=== PATIENT | male | born 1995 | race American Indian/Alaskan Native ===

== ENCOUNTER 2018-03-02 18:35 | Emergency (ER) | payer SELFPAY ==
[2018-03-02 19:43] LABS: Basophils # (Auto) 0.1 K/mm3 (0.0-0.1); Basophils % (Auto) 1.4 % (0.0-1.8); Eosinophils # (Auto) 0.2 K/mm3 (0.0-0.4); Eosinophils % (Auto) 2.1 % (0.0-4.3); Hematocrit 44.2 % (35.5-45.6); Hemoglobin 14.5 gm/dl (11.8-15.2); Lymphocytes # (Auto) 3.4 K/mm3 (1.2-5.4); Lymphocytes % (Auto) 32.3 % (13.4-35.0); Mean Corpuscular HGB Conc 33 % (32-34); Mean Corpuscular Hemoglobin 28 pg (28-32); Mean Corpuscular Volume 84 fl (84-94); Monocytes # (Auto) 0.7 K/mm3 (0.0-0.8); Monocytes % (Auto) 6.3 % (0.0-7.3); Platelet Count 312 K/mm3 (140-440); Red Blood Count 5.28 M/mm3 (3.65-5.03); Red Cell Distribution Width 13.7 % (13.2-15.2)
[2018-03-02 19:58] LABS: Albumin 4.4 g/dL (3.9-5); BUN/Creatinine Ratio 13; Blood Urea Nitrogen 14 mg/dL (9-20); Calcium 9.4 mg/dL (8.4-10.2); Hemolysis Index 14
[2018-03-02 20:00] LABS: Alanine Aminotransferase < 5 units/L (7-56)
--- NOTE | 2018-03-02 20:33 | Ultrasound Report ---
FINAL REPORT EXAM: US TESTICULAR DOPPLER COMP HISTORY: right testicular pain and swelling TECHNIQUE: Directed sonography of the scrotum. PRIORS: None. FINDINGS: Right testicle measures 4.2 x 2.2 x 2.6 cm. Left testicle measures 4.4 x 1.4 x 2.3 cm. Normal homogeneous echogenicity. No intratesticular masses. Blood flow present bilaterally. Right epididymis diffusely enlarged and hyperemic. Left epididymis grossly unremarkable. Small-moderate right hydrocele may be reactive. No other abnormal fluid collections. IMPRESSION: 1. Findings which may represent nonspecific postinflammatory change involving right epididymis or epididymitis. Correlate clinically. 2. No intratesticular masses or evidence of torsion.
[2018-03-02] MEDS ORDERED: ZITHROMAX PO ONE (20:53)
[2018-03-02] MEDS ORDERED: XYLOCAINE 1% MPF 5 mL INFILTRATI ONE (20:53)
[2018-03-02] MEDS ORDERED: ROCEPHIN IM ONE (20:53)
[2018-03-02] MEDS ORDERED: MOTRIN PO ONE (20:55)
[2018-03-02 20:56] LABS: Bilirubin,Urine NEG (Negative); Blood,Urine NEG (Negative); Color,Urine Yellow (Yellow); Mucus,Urine FEW /HPF; Protein,Urine <15 mg/dL mg/dL (Negative)
--- NOTE | 2018-03-02 21:36 | Emergency Department Report ---
ED Male HPI - General Chief complaint: Abdominal Pain Stated complaint: LOWER STOMACH PAIN Time Seen by Provider: 03/02/18 20:33 Source: patient Mode of arrival: Ambulatory Limitations: No Limitations - History of Present Illness Initial comments: 22-year-old male with no significant past medical or surgical history presents to the hospital complaining of right testicular pain and swelling 2 weeks that has gradually worsened. He also complains of intermittent lower abdominal pain. Pain is rated 10/10 in intensity, constant, worse with palpation and movement. No alleviating factors reported. Patient denies fever, nausea, vomiting, diarrhea, dysuria, penile discharge, or genital trauma. Patient last had sex one month ago and does not use condoms only engages in receptive anal intercourse and states that he does not insert his penis into any genital or rectal orifices during sex. - Related Data Previous Rx's Medication Instructions Recorded Last Taken Type Doxycycline [Vibramycin CAP] 100 mg PO Q12HR #30 capsule 03/02/18 Unknown Rx Ibuprofen [Motrin] 800 mg PO Q8HR PRN #30 tablet 03/02/18 Unknown Rx levoFLOXacin [Levaquin TAB] 500 mg PO QDAY #10 tablet 03/02/18 Unknown Rx traMADol [Ultram 50 MG tab] 50 mg PO Q6HR PRN #20 tablet 03/02/18 Unknown Rx Allergies Allergy/AdvReac Type Severity Reaction Status Date / Time No Known Allergies Allergy Verified 03/02/18 18:59 ED Review of Systems ROS: Stated complaint: LOWER STOMACH PAIN Other details as noted in HPI Comment: All other systems reviewed and negative ED Past Medical Hx - Past Medical History Previous Medical History?: No - Surgical History Past Surgical History?: No - Social History Smoking Status: Current Every Day Smoker Substance Use Type: Alcohol, Marijuana - Medications Home Medications: Home Medications Medication Instructions Recorded Confirmed Last Taken Type Doxycycline [Vibramycin CAP] 100 mg PO Q12HR #30 capsule 03/02/18 Unknown Rx Ibuprofen [Motrin] 800 mg PO Q8HR PRN #30 tablet 03/02/18 Unknown Rx levoFLOXacin [Levaquin TAB] 500 mg PO QDAY #10 tablet 03/02/18 Unknown Rx traMADol [Ultram 50 MG tab] 50 mg PO Q6HR PRN #20 tablet 03/02/18 Unknown Rx ED Physical Exam - General Limitations: No Limitations - Other Other exam information: General: No limitations, patient is alert in no acute distress Head exam: Atraumatic, normocephalic Eyes exam: Normal appearance ENT: Moist mucous membrane, normal oropharynx Neck exam: Normal inspection, full range of motion Respiratory exam: Clear to auscultation bilateral, no wheezes, rales, crackles Cardiovascular: Normal rate and rhythm, normal heart sounds Abdomen: Soft, nondistended, and nontender, with normal bowel sounds, no rebound, or guarding : Circumcised, no penile discharge or lesions. Right testicular swelling with epididymal tenderness on exam Extremity: Full range of motion normal inspection no deformity Back: Normal Inspection, full range of motion, no tenderness Neurologic: Alert, oriented x3, cranial nerves intact, no motor or sensory deficit Psychiatric: normal affect, normal mood Skin: Warm, dry, intact ED Course Vital Signs 03/02/18 18:50 Temperature 98.6 F Pulse Rate 75 Respiratory 18 Rate Blood Pressure 142/93 O2 Sat by Pulse 98 Oximetry ED Medical Decision Making - Lab Data Result diagrams: 03/02/18 19:24 03/02/18 19:24 Lab Results 03/02/18 03/02/18 03/02/18 Range/Units 19:24 19:24 20:43 WBC 10.5 (4.5-11.0) K/mm3 RBC 5.28 H (3.65-5.03) M/mm3 Hgb 14.5 (11.8-15.2) gm/dl Hct 44.2 (35.5-45.6) % MCV 84 (84-94) fl MCH 28 (28-32) pg MCHC 33 (32-34) % RDW 13.7 (13.2-15.2) % Plt Count 312 (140-440) K/mm3 Lymph % (Auto) 32.3 (13.4-35.0) % [place] % (Auto) 6.3 (0.0-7.3) % Eos % (Auto) 2.1 (0.0-4.3) % Baso % (Auto) 1.4 (0.0-1.8) % Lymph # 3.4 (1.2-5.4) K/mm3 [place] # 0.7 (0.0-0.8) K/mm3 Eos # 0.2 (0.0-0.4) K/mm3 Baso # 0.1 (0.0-0.1) K/mm3 Seg Neutrophils % 57.9 (40.0-70.0) % Seg Neutrophils # 6.1 (1.8-7.7) K/mm3 Sodium 140 (137-145) mmol/L Potassium 3.8 (3.6-5.0) mmol/L Chloride 100.9 (98-107) mmol/L Carbon Dioxide 26 (22-30) mmol/L Anion Gap 17 mmol/L BUN 14 (9-20) mg/dL Creatinine 1.1 (0.8-1.5) mg/dL Estimated GFR > 60 ml/min BUN/Creatinine Ratio 13 % Glucose 102 H (75-100) mg/dL Calcium 9.4 (8.4-10.2) mg/dL Total Bilirubin 0.40 (0.1-1.2) mg/dL AST 17 (5-40) units/L ALT < 5 L (7-56) units/L Alkaline Phosphatase 66 (35-129) units/L Total Protein 7.7 (6.3-8.2) g/dL Albumin 4.4 (3.9-5) g/dL Albumin/Globulin Ratio 1.3 % Urine Color Yellow (Yellow) Urine Turbidity Clear (Clear) Urine pH 6.0 (5.0-7.0) Ur Specific [place] 1.016 (1.003-1.030) Urine Protein <15 mg/dl (Negative) mg/dL Urine Glucose (UA) Neg (Negative) mg/dL Urine Ketones Neg (Negative) mg/dL Urine Blood Neg (Negative) Urine Nitrite Neg (Negative) Urine Bilirubin Neg (Negative) Urine Urobilinogen 2.0 (<2.0) mg/dL Ur Leukocyte Esterase Neg (Negative) Urine WBC (Auto) 2.0 (0.0-6.0) /HPF Urine RBC (Auto) 1.0 (0.0-6.0) /HPF Urine Mucus Few /HPF - Radiology Data Radiology results: report reviewed FINAL REPORT EXAM: US TESTICULAR DOPPLER COMP HISTORY: right testicular pain and swelling TECHNIQUE: Directed sonography of the scrotum. PRIORS: None. FINDINGS: Right testicle measures 4.2 x 2.2 x 2.6 cm. Left testicle measures 4.4 x 1.4 x 2.3 cm. Normal homogeneous echogenicity. No intratesticular masses. Blood flow present bilaterally. Right epididymis diffusely enlarged and hyperemic. Left epididymis grossly unremarkable. Small-moderate right hydrocele may be reactive. No other abnormal fluid collections. IMPRESSION: 1. Findings which may represent nonspecific postinflammatory change involving right epididymis or epididymitis. Correlate clinically. 2. No intratesticular masses or evidence of torsion. - Medical Decision Making Right testicular pain Ultrasound suggestive of right epididymitis UA negative, urine culture pending GC and chlamydia pending Patient does not engage and insertive anal intercourse Patient empirically treated with Rocephin and azithromycin given his age Gay and Motrin for pain Antibiotics will be continued upon discharge and urology follow-up encourage - Differential Diagnosis orchitis, torsion, UTI, urethritis, epididymitis Critical Care Time: No Critical care attestation.: If time is entered above; I have spent that time in minutes in the direct care of this critically ill patient, excluding procedure time. ED Disposition Clinical Impression: Right epididymitis Disposition: TO HOME OR SELFCARE Is pt being admited?: No Condition: Stable Instructions: Epididymitis (ED) Additional Instructions: Take the medication as prescribed. Follow up with the doctor provided. Return if symptoms worsen as indicated by your discharge instructions Prescriptions: Doxycycline [Vibramycin CAP] 100 mg PO Q12HR #30 capsule Ibuprofen [Motrin] 800 mg PO Q8HR PRN #30 tablet PRN Reason: Pain, Moderate (4-6) levoFLOXacin [Levaquin TAB] 500 mg PO QDAY #10 tablet traMADol [Ultram 50 MG tab] 50 mg PO Q6HR PRN #20 tablet PRN Reason: Pain Referrals: CELIA CHONG MD [Staff Physician] - 3-5 Days (Urology) [facility] [Provider Group] - 3-5 Days (Primary care clinic) Forms: STI Treatment and Prevention Time of Disposition: 21:41
[2018-03-02 22:14] VITALS: BP 140/97
== END 2018-03-02 22:17 | disposition home or self-care (01) ==
LOC: EDSEX → ED 18:35
DX: N45.1 Epididymitis (principal); F17.200 Nicotine dependence, unspecified, uncomplicated; F12.10 Cannabis abuse, uncomplicated
CPT/HCPCS: 36415; 80053; 81001; 85025; 87086; 87591; 93975; 96372; 99284; J0696

== ENCOUNTER 2018-07-14 12:47 | Emergency (ER) | payer BC ==
[2018-07-14 13:03] VITALS: BP 142/100
[2018-07-14] MEDS ORDERED: ZITHROMAX PO ONE (13:23)
[2018-07-14] MEDS ORDERED: XYLOCAINE 1% MPF 5 mL INFILTRATI ONE (13:24)
[2018-07-14] MEDS ORDERED: ROCEPHIN IM ONE (13:24)
--- NOTE | 2018-07-14 13:25 | Emergency Department Report ---
Addendum entered and electronically signed by MARIAH ROBERTSON NP 07/14/18 13:57: correction of PMH- remove urinary retention - not applicable to this patient Original Note: ED Dysuria HPI - HPI Chief Complaint: Urogenital-Male Stated Complaint: SORE THROAT/INFECTION Time Seen by Provider: 07/14/18 13:23 Duration: 4 Days Severity: Mild Symptoms: Dysuria: Yes, Frequency: No, Suprapubic Pain: No, Flank Pain: No, Fever: No, Hematuria: No, Abdominal Pain: No, Previous UTI's: No Other History: 23 yo homosexual male with exposure to chlamydia ED Review of Systems ROS: Stated complaint: SORE THROAT/INFECTION Other details as noted in HPI Comment: All other systems reviewed and negative Constitutional: denies: chills Eyes: denies: as per HPI ENT: denies: throat pain Respiratory: denies: cough Cardiovascular: denies: dyspnea on exertion Gastrointestinal: denies: abdominal pain Genitourinary: as per HPI, dysuria, frequency ED Past Medical Hx - Past Medical History Previous Medical History?: Yes Additional medical history: urinary retention in 2016- seen here- sent to [facility] [place]. pt thinks it is a stricture. he was treated and has had no problems to date -07/14/18 - Surgical History Past Surgical History?: No - Social History Smoking Status: Never Smoker Substance Use Type: Alcohol - Medications Home Medications: Home Medications Medication Instructions Recorded Confirmed Last Taken Type Doxycycline [Vibramycin CAP] 100 mg PO Q12HR #30 capsule 03/02/18 Unknown Rx Ibuprofen [Motrin] 800 mg PO Q8HR PRN #30 tablet 03/02/18 Unknown Rx levoFLOXacin [Levaquin TAB] 500 mg PO QDAY #10 tablet 03/02/18 Unknown Rx traMADol [Ultram 50 MG tab] 50 mg PO Q6HR PRN #20 tablet 03/02/18 Unknown Rx Dysuria Exam - Exam General: Vital signs noted. No distress. Alert and acting appropriately. a/o nad s1s2 lungs cta abd snt Exam: Yes Moist Mucous Membranes, No CVA Tenderness, No Abdominal Tenderness, No Rigidity or Guarding ED Course Vital Signs 07/14/18 13:00 Temperature 99 F Pulse Rate 87 Respiratory 18 Rate Blood Pressure 142/100 O2 Sat by Pulse 99 Oximetry - Reevaluation(s) Reevaluation #1: 07/14/18 13:53 discussed elevated blood pressure with pt. he states he is just upset about the current situation ED Medical Decision Making - Medical Decision Making tingling with urination and sore throat; pos discharge exposure to chlamydia ua/gc sent treated with azithrom and rocephin dc home - Differential Diagnosis sti Critical care attestation.: If time is entered above; I have spent that time in minutes in the direct care of this critically ill patient, excluding procedure time. ED Disposition Clinical Impression: STD (sexually transmitted disease), Elevated blood pressure reading Disposition: DC-01 TO HOME OR SELFCARE Is pt being admited?: No Does the pt Need Aspirin: No Condition: Stable Instructions: Sexually Transmitted Diseases (ED), Safe Sex (ED) Additional Instructions: safe sex monitor blood pressure Referrals: TANNA BERMAN MD [Staff Physician] - 3-5 Days Time of Disposition: 13:25
[2018-07-14 13:54] LABS: Bilirubin,Urine NEG (Negative); Blood,Urine NEG (Negative); Color,Urine Yellow (Yellow); Mucus,Urine FEW /HPF; Protein,Urine <15 mg/dL mg/dL (Negative); Urobilinogen,Urine < 2.0 mg/dL (<2.0)
== END 2018-07-14 13:59 | disposition home or self-care (01) ==
LOC: ED 12:47
DX: A64 Unspecified sexually transmitted disease (principal); I10 Essential (primary) hypertension
CPT/HCPCS: 81001; 87591; 96372; 99283; J0696

== ENCOUNTER 2018-11-11 17:19 | Emergency (ER) | payer SELFPAY ==
--- NOTE | 2018-11-11 18:10 | Emergency Department Report ---
Chief Complaint: Fever Stated Complaint: CHILLS/LOSS OF APPETITE Time Seen by Provider: 11/11/18 18:06 - HPI History of Present Illness: This is a 23 y.o. male that presents with discharge and dysuria to rectum x 1 week. Reports chills and fever No medication No PMH - Exam Vital Signs: Vital Signs 11/11/18 18:02 Temperature 100.9 F H Pulse Rate 92 H Respiratory 18 Rate Blood Pressure 137/90 O2 Sat by Pulse 99 Oximetry MSE screening note: Focused history and physical exam performed. Due to findings the following was ordered: ED Disposition for MSE Condition: Stable
[2018-11-11 18:31] LABS: Basophils % (Auto) 0.5 % (0.0-1.8); Eosinophils % (Auto) 0.1 % (0.0-4.3); Hematocrit 45.6 % (35.5-45.6); Hemoglobin 15.2 gm/dl (11.8-15.2); Lymphocytes # (Auto) 1.1 K/mm3 (1.2-5.4); Lymphocytes % (Auto) 21.2 % (13.4-35.0); Mean Corpuscular HGB Conc 33 % (32-34); Mean Corpuscular Volume 84 fl (84-94); Monocytes # (Auto) 0.4 K/mm3 (0.0-0.8); Monocytes % (Auto) 8.9 % (0.0-7.3); Platelet Count 122 K/mm3 (140-440); Red Blood Count 5.42 M/mm3 (3.65-5.03)
[2018-11-11 18:46] LABS: BUN/Creatinine Ratio 7; Blood Urea Nitrogen 10 mg/dL (9-20); Calcium 9.1 mg/dL (8.4-10.2); Hemolysis Index 14
[2018-11-11 18:56] LABS: Bacteria,Urine 1+ /HPF (Negative); Bilirubin,Urine NEG (Negative); Blood,Urine SM (Negative); Color,Urine Yellow (Yellow); Mucus,Urine FEW /HPF; Protein,Urine <15 mg/dL mg/dL (Negative); Urobilinogen,Urine < 2.0 mg/dL (<2.0)
[2018-11-11] MEDS ORDERED: IBUPROFEN PO ONE (20:55)
--- NOTE | 2018-11-11 20:55 | Emergency Department Report ---
ED General Adult HPI - General Chief complaint: Fever Stated complaint: CHILLS/LOSS OF APPETITE Time Seen by Provider: 11/11/18 18:06 Source: patient Mode of arrival: Ambulatory Limitations: No Limitations - History of Present Illness Initial comments: Pt is a 23 yo male who presents to the ED with c/o white rectal discharge that began a week ago. He states he has associated chills and generalized body aches. He denies any dysuria, penile discharge, penile pain, testicular edema, testicular pain. denies cough, CP, SOB, or N/V/D. He states he has had this one time in the past and states he had a small "anal tear" and was seen by GI. he denies any PMHx. denies allergies to meds. - Related Data Previous Rx's Medication Instructions Recorded Last Taken Type DOXYCYCLINE Hyclate [Vibramycin 100 mg PO Q12HR #30 capsule 03/02/18 Unknown Rx CAP] Ibuprofen [Motrin] 800 mg PO Q8HR PRN #30 tablet 03/02/18 Unknown Rx levoFLOXacin [Levaquin TAB] 500 mg PO QDAY #10 tablet 03/02/18 Unknown Rx traMADol [Ultram 50 MG tab] 50 mg PO Q6HR PRN #20 tablet 03/02/18 Unknown Rx Doxycycline Hyclate [Doxycycline 100 mg PO BID 7 Days #14 tab 11/11/18 Unknown Rx Hyclate TAB] Allergies Allergy/AdvReac Type Severity Reaction Status Date / Time No Known Allergies Allergy Verified 07/14/18 13:00 ED Review of Systems ROS: Stated complaint: CHILLS/LOSS OF APPETITE Other details as noted in HPI Comment: All other systems reviewed and negative ED Past Medical Hx - Past Medical History Previous Medical History?: No Additional medical history: urinary retention in 2016- seen here- sent to [facility] [place]. pt thinks it is a stricture. he was treated and has had no problems to date -07/14/18 - Surgical History Past Surgical History?: No - Social History Smoking Status: Current Some Day Smoker Substance Use Type: Alcohol - Medications Home Medications: Home Medications Medication Instructions Recorded Confirmed Last Taken Type DOXYCYCLINE Hyclate [Vibramycin 100 mg PO Q12HR #30 capsule 03/02/18 Unknown Rx CAP] Ibuprofen [Motrin] 800 mg PO Q8HR PRN #30 tablet 03/02/18 Unknown Rx levoFLOXacin [Levaquin TAB] 500 mg PO QDAY #10 tablet 03/02/18 Unknown Rx traMADol [Ultram 50 MG tab] 50 mg PO Q6HR PRN #20 tablet 03/02/18 Unknown Rx Doxycycline Hyclate [Doxycycline 100 mg PO BID 7 Days #14 tab 11/11/18 Unknown Rx Hyclate TAB] ED Physical Exam - General Limitations: No Limitations General appearance: alert, in no apparent distress - Head Head exam: Present: atraumatic, normocephalic - Eye Eye exam: Present: normal appearance - Respiratory Respiratory exam: Present: normal lung sounds bilaterally. Absent: respiratory distress, wheezes, rales, rhonchi, stridor, chest wall tenderness, accessory muscle use, decreased breath sounds, prolonged expiratory - Cardiovascular Cardiovascular Exam: Present: regular rate, normal rhythm, normal heart sounds. Absent: systolic murmur, diastolic murmur, rubs, gallop - GI/Abdominal GI/Abdominal exam: Present: soft, normal bowel sounds. 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, no hemorrhoids visualized or palpated, no visualized discharge, no obvious area of induration or fluctuance, no erythema of the rectal area, perineum or scrotum) - Neurological Exam Neurological exam: Present: alert, oriented X3 - Psychiatric Psychiatric exam: Present: normal affect, normal mood - Skin Skin exam: Present: warm, dry, intact ED Course Vital Signs 11/11/18 11/11/18 11/11/18 18:02 21:03 22:03 Temperature 100.9 F H Pulse Rate 92 H Respiratory 18 16 16 Rate Blood Pressure 137/90 Blood Pressure [Left] O2 Sat by Pulse 99 Oximetry 11/11/18 23:32 Temperature 99 F Pulse Rate 72 Respiratory 18 Rate Blood Pressure Blood Pressure 117/74 [Left] O2 Sat by Pulse 97 Oximetry ED Medical Decision Making - Lab Data Result diagrams: 11/11/18 18:21 11/11/18 18:21 Lab Results 11/11/18 11/11/18 11/11/18 Range/Units 18:08 18:21 18:21 WBC 5.0 (4.5-11.0) K/mm3 RBC 5.42 H (3.65-5.03) M/mm3 Hgb 15.2 (11.8-15.2) gm/dl Hct 45.6 (35.5-45.6) % MCV 84 (84-94) fl MCH 28 (28-32) pg MCHC 33 (32-34) % RDW 14.0 (13.2-15.2) % Plt Count 122 L (140-440) K/mm3 Lymph % (Auto) 21.2 (13.4-35.0) % [place] % (Auto) 8.9 H (0.0-7.3) % Eos % (Auto) 0.1 (0.0-4.3) % Baso % (Auto) 0.5 (0.0-1.8) % Lymph # 1.1 L (1.2-5.4) K/mm3 [place] # 0.4 (0.0-0.8) K/mm3 Eos # 0.0 (0.0-0.4) K/mm3 Baso # 0.0 (0.0-0.1) K/mm3 Seg Neutrophils % 69.3 (40.0-70.0) % Seg Neutrophils # 3.5 (1.8-7.7) K/mm3 Sodium 135 L (137-145) mmol/L Potassium 3.6 (3.6-5.0) mmol/L Chloride 101.1 (98-107) mmol/L Carbon Dioxide 25 (22-30) mmol/L Anion Gap 13 mmol/L BUN 10 (9-20) mg/dL Creatinine 1.5 (0.8-1.5) mg/dL Estimated GFR > 60 ml/min BUN/Creatinine Ratio 7 % Glucose 99 (75-100) mg/dL Calcium 9.1 (8.4-10.2) mg/dL Urine Color Yellow (Yellow) Urine Turbidity Clear (Clear) Urine pH 5.0 (5.0-7.0) Ur Specific [place] 1.017 (1.003-1.030) Urine Protein <15 mg/dl (Negative) mg/dL Urine Glucose (UA) Neg (Negative) mg/dL Urine Ketones Tr (Negative) mg/dL Urine Blood Sm (Negative) Urine Nitrite Neg (Negative) Urine Bilirubin Neg (Negative) Urine Urobilinogen < 2.0 (<2.0) mg/dL Ur Leukocyte Esterase Neg (Negative) Urine WBC (Auto) 4.0 (0.0-6.0) /HPF Urine RBC (Auto) 2.0 (0.0-6.0) /HPF U Epithel Cells (Auto) < 1.0 (0-13.0) /HPF Urine Bacteria (Auto) 1+ (Negative) /HPF Urine Mucus Few /HPF HIV 1&2 Antibody Rapid (Non React) HIV P24 Antigen (Non React) 11/11/18 Range/Units 21:18 WBC (4.5-11.0) K/mm3 RBC (3.65-5.03) M/mm3 Hgb (11.8-15.2) gm/dl Hct (35.5-45.6) % MCV (84-94) fl MCH (28-32) pg MCHC (32-34) % RDW (13.2-15.2) % Plt Count (140-440) K/mm3 Lymph % (Auto) (13.4-35.0) % [place] % (Auto) (0.0-7.3) % Eos % (Auto) (0.0-4.3) % Baso % (Auto) (0.0-1.8) % Lymph # (1.2-5.4) K/mm3 [place] # (0.0-0.8) K/mm3 Eos # (0.0-0.4) K/mm3 Baso # (0.0-0.1) K/mm3 Seg Neutrophils % (40.0-70.0) % Seg Neutrophils # (1.8-7.7) K/mm3 Sodium (137-145) mmol/L Potassium (3.6-5.0) mmol/L Chloride (98-107) mmol/L Carbon Dioxide (22-30) mmol/L Anion Gap mmol/L BUN (9-20) mg/dL Creatinine (0.8-1.5) mg/dL Estimated GFR ml/min BUN/Creatinine Ratio % Glucose (75-100) mg/dL Calcium (8.4-10.2) mg/dL Urine Color (Yellow) Urine Turbidity (Clear) Urine pH (5.0-7.0) Ur Specific [place] (1.003-1.030) Urine Protein (Negative) mg/dL Urine Glucose (UA) (Negative) mg/dL Urine Ketones (Negative) mg/dL Urine Blood (Negative) Urine Nitrite (Negative) Urine Bilirubin (Negative) Urine Urobilinogen (<2.0) mg/dL Ur Leukocyte Esterase (Negative) Urine WBC (Auto) (0.0-6.0) /HPF Urine RBC (Auto) (0.0-6.0) /HPF U Epithel Cells (Auto) (0-13.0) /HPF Urine Bacteria (Auto) (Negative) /HPF Urine Mucus /HPF HIV 1&2 Antibody Rapid Non react (Non React) HIV P24 Antigen Non react (Non React) - Medical Decision Making Pt is a 23 yo male who presents to the ED with c/o white rectal discharge that began a week ago. He states he has associated chills and generalized body aches. He denies any dysuria, penile discharge, penile pain, testicular edema, testicular pain. denies cough, CP, SOB, or N/V/D. He states he has had this one time in the past and states he had a small "anal tear" and was seen by GI. he denies any PMHx. denies allergies to meds. on examination no signs of abscess or cellulitis, no abd tenderness, pt given ceftriaxone and azithromycin while in t he ED and also ibuprofen for a low grade temperature. pt had one episode of emesis after medications and stated he did not eat anything today. pt given zofran and had no further episodes of emesis and tolerated PO intake while in the ED. pt given prescription for doxcycline. advised to take as prescribed. will have pt follow back up with his GI doctor in the next 2-3 days. follow up with PCP in the next 2-3 days. return to the ED for any new or worsening symptoms. rapid HIV test sent and was non reactive, advised to have it repeated in 3-6 months. discussed if concerned for any other STDs to be seen at PCP or health department. discussed to abstain from intercourse for 10 days. have partner tested and treated. Critical care attestation.: If time is entered above; I have spent that time in minutes in the direct care of this critically ill patient, excluding procedure time. ED Disposition Clinical Impression: Rectal discharge Disposition: TO HOME OR SELFCARE Is pt being admited?: No Does the pt Need Aspirin: No Condition: Stable Additional Instructions: Please take all medication as prescribed. Follow up with a GI doctor in the next 2-3 days. follow up with a primary care doctor in the next 2-3 days. will need to have further STD testing through health department or primary care office. return to the emergency room for any new or worsening symptoms. Prescriptions: Doxycycline Hyclate [Doxycycline Hyclate TAB] 100 mg PO BID 7 Days #14 tab Referrals: PRIMARY CAREMD [Primary Care Provider] - 2-3 Days [facility] [Provider Group] - 2-3 Days Time of Disposition: 22:55 Print Language: SINHALA
[2018-11-11] MEDS ORDERED: ZITHROMAX PO ONE (21:18)
[2018-11-11] MEDS ORDERED: XYLOCAINE 1% MPF 5 mL INFILTRATI ONE (21:18)
[2018-11-11] MEDS ORDERED: ROCEPHIN IM ONE (21:18)
[2018-11-11] MEDS ORDERED: ZOFRAN ODT PO ONE (22:27)
[2018-11-11 23:32] VITALS: BP 117/74
== END 2018-11-11 23:38 | disposition home or self-care (01) ==
LOC: ED 17:19
DX: K62.89 Other specified diseases of anus and rectum (principal); F17.200 Nicotine dependence, unspecified, uncomplicated
CPT/HCPCS: 36415; 80048; 81001; 85025; 87806; 96372; 99283; J0696; Q0162

== ENCOUNTER 2018-11-14 16:22 | Emergency (ER) | payer BC ==
[2018-11-14 16:29] VITALS: BP 121/75
--- NOTE | 2018-11-14 16:29 | Emergency Department Report ---
Blank Doc - Documentation Documentation: This is a 23-year-old male that presents with URI symptoms. Patient stated was here on the of this month with normal labs. This initial assessment/diagnostic orders/clinical plan/treatment(s) is/are subject to change based on patient's health status, clinical progression and re- assessment by fellow clinical providers in the ED. Further treatment and workup at subsequent clinical providers discretion. Patient/guardians urged not to elope from the ED as their condition may be serious if not clinically assessed and managed. Initial orders include: 1- Patient sent to [facility] for further evaluation and treatment 2- Xray
--- NOTE | 2018-11-14 17:30 | XRay Report ---
PROCEDURE: XR CHEST ROUTINE 2V TECHNIQUE: PA and lateral chest radiographs were obtained. HISTORY: cough COMPARISONS: None. FINDINGS: Heart: Normal. Mediastinum/Vessels: Normal. Lungs/Pleural space: Normal. Bony thorax: No acute osseous abnormality. IMPRESSION: Normal examination. This document is electronically signed by Ruben Ferro MD., Nov 14 2018 05:28:25 PM ET
[2018-11-14 19:46] LABS: Basophils % (Auto) 0.4 % (0.0-1.8); Hematocrit 43.1 % (35.5-45.6); Hemoglobin 14.4 gm/dl (11.8-15.2); Lymphocytes # (Auto) 0.7 K/mm3 (1.2-5.4); Lymphocytes % (Auto) 27.9 % (13.4-35.0); Mean Corpuscular HGB Conc 33 % (32-34); Mean Corpuscular Volume 83 fl (84-94); Monocytes # (Auto) 0.2 K/mm3 (0.0-0.8); Monocytes % (Auto) 5.8 % (0.0-7.3); Red Cell Distribution Width 13.8 % (13.2-15.2)
[2018-11-14 19:47] LABS: Platelet Count 86 K/mm3 (140-440)
[2018-11-14 20:00] LABS: Bacteria,Urine 1+ /HPF (Negative); Bilirubin,Urine NEG (Negative); Blood,Urine SM (Negative); Color,Urine Yellow (Yellow); Mucus,Urine FEW /HPF; Urobilinogen,Urine < 2.0 mg/dL (<2.0)
[2018-11-14 20:18] LABS: Alanine Aminotransferase 14 units/L (7-56); Albumin 3.8 g/dL (3.9-5); BUN/Creatinine Ratio 9; Blood Urea Nitrogen 13 mg/dL (9-20); Calcium 8.9 mg/dL (8.4-10.2); Hemolysis Index 11
--- NOTE | 2018-11-14 22:24 | Emergency Department Report ---
ED General Adult HPI - General Chief complaint: Upper Respiratory Infection Stated complaint: COLD SX Time Seen by Provider: 11/14/18 16:28 Source: patient Mode of arrival: Ambulatory Limitations: No Limitations - History of Present Illness Initial comments: 23-year-old Afro-Citizen Of [place] male presents emergency department complaining of continued weakness, fatigue, chills, and coryza. He has incorporated worsening chills over the past couple of days. He was seen here on the and evaluated for the same symptoms in combination with a rectal disorder. When he was prescribed some doxycycline and advised follow-up with GI, but is not yet been able to to do so. He was also provided with information for primary care provider however, still was not able to follow-up at this point. Currently is complaining of having her general aches and pains to his back, muscle aches and general fatigue. He feels is worsening and he is worried that there is an ongoing problem that is not being captured. - Related Data Previous Rx's Medication Instructions Recorded Last Taken Type DOXYCYCLINE Hyclate [Vibramycin 100 mg PO Q12HR #30 capsule 03/02/18 Unknown Rx CAP] Ibuprofen [Motrin] 800 mg PO Q8HR PRN #30 tablet 03/02/18 Unknown Rx levoFLOXacin [Levaquin TAB] 500 mg PO QDAY #10 tablet 03/02/18 Unknown Rx traMADol [Ultram 50 MG tab] 50 mg PO Q6HR PRN #20 tablet 03/02/18 Unknown Rx Doxycycline Hyclate [Doxycycline 100 mg PO BID 7 Days #14 tab 11/11/18 Unknown Rx Hyclate TAB] Nystas/Diphen/Xyl Visc/Mylanta 15 ml MM Q6H #660 ml 11/14/18 Unknown Rx [Magic Mouthwash] Allergies Allergy/AdvReac Type Severity Reaction Status Date / Time No Known Allergies Allergy Verified 07/14/18 13:00 ED Review of Systems ROS: Stated complaint: COLD SX Other details as noted in HPI Constitutional: malaise. denies: chills, fever Eyes: denies: eye pain, eye discharge, vision change ENT: denies: ear pain, throat pain Respiratory: denies: cough, shortness of breath, wheezing Cardiovascular: denies: chest pain, palpitations Endocrine: no symptoms reported Gastrointestinal: denies: abdominal pain, nausea, diarrhea Genitourinary: denies: urgency, dysuria Musculoskeletal: denies: back pain, joint swelling, arthralgia Skin: denies: rash, lesions Neurological: denies: headache, weakness, paresthesias Psychiatric: denies: anxiety, depression Hematological/Lymphatic: denies: easy bleeding, easy bruising ED Past Medical Hx - Past Medical History Previous Medical History?: No Additional medical history: urinary retention in 2016- seen here- sent to [facility]. pt thinks it is a stricture. he was treated and has had no problems to date -07/14/18 - Surgical History Past Surgical History?: No - Social History Smoking Status: Never Smoker Substance Use Type: Alcohol - Medications Home Medications: Home Medications Medication Instructions Recorded Confirmed Last Taken Type DOXYCYCLINE Hyclate [Vibramycin 100 mg PO Q12HR #30 capsule 03/02/18 Unknown Rx CAP] Ibuprofen [Motrin] 800 mg PO Q8HR PRN #30 tablet 03/02/18 Unknown Rx levoFLOXacin [Levaquin TAB] 500 mg PO QDAY #10 tablet 03/02/18 Unknown Rx traMADol [Ultram 50 MG tab] 50 mg PO Q6HR PRN #20 tablet 03/02/18 Unknown Rx Doxycycline Hyclate [Doxycycline 100 mg PO BID 7 Days #14 tab 11/11/18 Unknown Rx Hyclate TAB] Nystas/Diphen/Xyl Visc/Mylanta 15 ml MM Q6H #660 ml 11/14/18 Unknown Rx [Magic Mouthwash] ED Physical Exam - General Limitations: No Limitations General appearance: alert, in no apparent distress - Head Head exam: Present: atraumatic, normocephalic - Eye Eye exam: Present: normal appearance - ENT ENT exam: Present: mucous membranes moist - Neck Neck exam: Present: normal inspection - Respiratory Respiratory exam: Present: normal lung sounds bilaterally. Absent: respiratory distress - Cardiovascular Cardiovascular Exam: Present: regular rate, normal rhythm. Absent: systolic murmur, diastolic murmur, rubs, gallop - GI/Abdominal GI/Abdominal exam: Present: soft, normal bowel sounds - Rectal Rectal exam: Present: deferred - Extremities Exam Extremities exam: Present: normal inspection - Back Exam Back exam: Present: normal inspection - Neurological Exam Neurological exam: Present: alert, oriented X3 - Psychiatric Psychiatric exam: Present: normal affect, normal mood - Skin Skin exam: Present: warm, dry, intact, normal color. Absent: rash ED Course Vital Signs 11/14/18 16:28 Temperature 98.5 F Pulse Rate 94 H Respiratory 16 Rate Blood Pressure 121/75 O2 Sat by Pulse 100 Oximetry ED Medical Decision Making - Lab Data Result diagrams: 11/14/18 19:36 11/14/18 19:36 Critical care attestation.: If time is entered above; I have spent that time in minutes in the direct care of this critically ill patient, excluding procedure time. ED Disposition Disposition: DC-01 TO HOME OR SELFCARE Condition: Stable Instructions: Oral Candidiasis (ED), Thrombocytopenia (ED) Additional Instructions: Patient should follow-up with internal medicine. No hematology if you're able. Should he develop any spontaneous bleeding, return to the emergency department. Prescriptions: Nystas/Diphen/Xyl Visc/Mylanta [Magic Mouthwash] 15 ml MM Q6H #660 ml Referrals: [facility] [Provider Group] - 3-5 Days MANCHESTER JENS MOTLEY MD [Primary Care Provider] - 3-5 Days
== END 2018-11-14 22:33 | disposition home or self-care (01) ==
LOC: ED 16:22
DX: J00 Acute nasopharyngitis [common cold] (principal)
CPT/HCPCS: 36415; 71046; 80053; 81001; 85025; 99283

== ENCOUNTER 2020-07-28 10:33 | Emergency (ER) | payer OTHER ==
[2020-07-28 10:52] VITALS: BP 161/100
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
--- NOTE | 2020-07-28 11:25 | XRay Report ---
Left elbow 3 views INDICATION: Pain FINDINGS: Alignment appears normal. No acute fracture or dislocation is definitely seen. Radial head and neck appear normal. No large joint effusion. Signer Name: Farhad London MD Signed: 07/28/2020 11:21 AM Workstation Name: [email or web address]
== END 2020-07-28 12:20 | disposition home or self-care (01) ==
LOC: ED 10:33
DX: S56.811D Strain of other muscles, fascia and tendons at forearm level, right arm, subsequent encounter (principal); S86.911A Strain of unspecified muscle(s) and tendon(s) at lower leg level, right leg, initial encounter; Z79.899 Other long term (current) drug therapy; V49.59XA Passenger injured in collision with other motor vehicles in traffic accident, initial encounter; Y93.89 Activity, other specified; Y92.488 Other paved roadways as the place of occurrence of the external cause; Y99.8 Other external cause status
CPT/HCPCS: 99283

== ENCOUNTER 2020-10-11 15:14 | Emergency (ER) | payer OTHER ==
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
== END 2020-10-11 17:29 | disposition home or self-care (01) ==
LOC: ED 15:14
DX: S00.83XA Contusion of other part of head, initial encounter (principal); H11.31 Conjunctival hemorrhage, right eye; F17.200 Nicotine dependence, unspecified, uncomplicated; Z79.1 Long term (current) use of non-steroidal anti-inflammatories (NSAID); Z79.899 Other long term (current) drug therapy; X58.XXXA Exposure to other specified factors, initial encounter; Y93.89 Activity, other specified; Y92.89 Other specified places as the place of occurrence of the external cause; Y99.8 Other external cause status
CPT/HCPCS: 70486